=== PATIENT | female | born 1940 | race Caucasian/White ===

== ENCOUNTER 2021-03-08 22:09 | Inpatient (IN) | payer MEDICARE ==
[~2021-03-08] VITALS: Ht 151.1 cm; Wt 60.4 kg
[~2021-03-08 22:09] MED LIST: NAPR220C2 PO; TRAM50TA2 PO
--- NOTE | 2021-03-08 22:28 | NUR ---
GEN SURG PAGED
[2021-03-08] MEDS ORDERED: ONDANSETRON 2MG/ML, 2ML IVPush ONE (22:30)
[2021-03-08] MEDS ORDERED: SODIUM CHLORIDE FLUSH 10ML SYR IVF ONE (22:30)
[2021-03-08] MEDS ORDERED: SODIUM CHLORIDE 0.9% 1,000 ML IV ONE (22:30)
[2021-03-08] MEDS ORDERED: MORPHINE SULFATE 4 MG/ML, 1ML IVPush PRN (22:30)
--- NOTE | 2021-03-08 22:37 | NUR ---
CHANDRIKA FROM [facility] FOR POSSIBLE SBO OR HERNIA OBSTRUCTION AND VOMITING. PT HAS HX OF COLON CA AND SBO IN PAST. PT HAS OSTOMY IN RLQ AND RLQ ABD IS DISTENDED MUCH GREATER THEN LEFT. PT STATES SHE HAS ONLY VOMITED ONCE. PT RECEIVED MORPHINE AND ZOFRAN BEFORE TRANSFER AND STATES IT HAS HELPED WITH PAIN AND NOW PAIN IS 0/10.
[2021-03-08] MEDS ORDERED: ONDANSETRON 2MG/ML, 2ML ONE (23:20)
[2021-03-08] MEDS ORDERED: MORPHINE SULFATE 4 MG/ML, 1ML ONE (23:21)
[2021-03-08] MEDS ORDERED: hydrALAzine 20 MG/ML, 1ML IVPush PRN (23:30)
[2021-03-08] MEDS ORDERED: ONDANSETRON 2MG/ML, 2ML IVPush PRN (23:30)
[2021-03-08] MEDS ORDERED: ACETAMINOPHEN 325 MG TABLET PO PRN (23:30)
[2021-03-08] MEDS ORDERED: PROMETHAZINE 25 MG/ML, 1ML IM PRN (23:30)
[2021-03-08] MEDS ORDERED: OXYcodone IR 5MG TABLET PO PRN (23:30)
[2021-03-08] MEDS ORDERED: ONDANSETRON ODT 4 MG PO PRN (23:30)
--- NOTE | 2021-03-08 23:49 | NUR ---
NG TUBE PLACED WITH MINIMAL DISCOMFORT IN RIGHT NARE.
--- NOTE | 2021-03-08 23:57 | NUR ---
REPORT GIVEN TO KAUSHAL FERNANDEZ
--- NOTE | 2021-03-08 23:58 | NUR ---
DAUGHTER NARENDRA/TOPHER [phone]
[2021-03-09] MEDS: D5%-0.9% NACL 1,000 ML IV SCH ×2 (00:35→08:14)
[2021-03-09 00:39] VITALS: BP 146/70
[2021-03-09] MEDS: morphine SULFATE 10 MG/ML, 1ML IVPush PRN ×4 (02:32→09:19)
[2021-03-09] MEDS ORDERED: TRIM100T PO (03:18)
[2021-03-09] MEDS ORDERED: NITR100C PO (03:18)
[2021-03-09 05:44] LABS: BASOPHILS % (AUTO) 0 % (0-1); EOSINOPHILS % (AUTO) 1 % (1-7); LYMPHOCYTES % (AUTO) 11 % (22-44); MEAN CORPUSCULAR HEMOGLOBIN 29.5 pg (27.0-34.8); MEAN CORPUSCULAR HGB CONC 32.7 g/dL (32.4-35.8); MEAN PLATELET VOLUME 8.6 fL (7.4-10.4); MONOCYTES % (AUTO) 13 % (2-9); NEUTROPHILS % (AUTO) 74 % (42-75); PLATELET COUNT 193 x10^3/uL (130-400); RED BLOOD COUNT 4.55 x10^6/uL (3.82-5.3); RED CELL DISTRIBUTION WIDTH 16.1 % (9.6-15.2)
[2021-03-09 05:53] LABS: MD NO
[2021-03-09 06:00] LABS: CHLORIDE 114 mmol/L (98-107)
[2021-03-09 06:13] LABS: ALANINE AMINOTRANSFERASE 14 U/L (12-78); ALBUMIN 2.5 g/dL (3.4-5.0); ALKALINE PHOSPHATASE 95 U/L (45-117); ANION GAP 5 mmol/L (5-15); BILIRUBIN,TOTAL 0.7 mg/dL (0.2-1.0); CALCIUM 8.2 mg/dL (8.5-10.1); CHOL/HDL RATIO 2.6; CHOLESTEROL, TOTAL 164 mg/dL (140-239); CREATININE 1.05 mg/dL (0.55-1.02); HDL CHOL % 38 % (28-40); HDL CHOLESTEROL (DIRECT) 62 mg/dL (40-60); LDL CHOLESTEROL,CALCULATED 87 mg/dL (54-169); LDL/HDL RATIO 1.4 (0.5-3.0); TOTAL PROTEIN 6.4 g/dL (6.4-8.2); TRIGLYCERIDES 73 mg/dL (50-200); VLDL CHOLESTEROL 15 mg/dL (0-25)
[2021-03-09 07:44] VITALS: BP 149/79
[2021-03-09 13:47] VITALS: BP 135/81
[2021-03-09] MEDS: HEPARIN 5,000 UNITS/ML, 1ML SQ SCH (16:12)
[2021-03-09] MEDS: D5%-LR+KCL 20MEQ 1,000 ML IV SCH (16:13)
[2021-03-09 19:56] VITALS: BP 135/73
[2021-03-09 21:30] LABS: MICROSCOPIC INDICATED
[2021-03-09] MEDS ORDERED: D5%-0.9% NACL 1,000 ML IV SCH (23:30)
[2021-03-10 00:42] VITALS: BP 152/87
[2021-03-10] MEDS: HEPARIN 5,000 UNITS/ML, 1ML SQ SCH ×4 (01:49→18:00)
[2021-03-10] MEDS: D5%-LR+KCL 20MEQ 1,000 ML IV SCH ×2 (02:22→20:00)
[2021-03-10] MEDS: morphine SULFATE 10 MG/ML, 1ML IVPush PRN (04:04)
[2021-03-10 06:11] LABS: BASOPHILS % (AUTO) 1 % (0-1); EOSINOPHILS % (AUTO) 1 % (1-7); LYMPHOCYTES % (AUTO) 12 % (22-44); MEAN CORPUSCULAR HEMOGLOBIN 29.4 pg (27.0-34.8); MEAN CORPUSCULAR HGB CONC 32.5 g/dL (32.4-35.8); MEAN PLATELET VOLUME 8.6 fL (7.4-10.4); MONOCYTES % (AUTO) 16 % (2-9); NEUTROPHILS % (AUTO) 70 % (42-75); PLATELET COUNT 173 x10^3/uL (130-400); RED BLOOD COUNT 4.18 x10^6/uL (3.82-5.3); RED CELL DISTRIBUTION WIDTH 16.1 % (9.6-15.2)
[2021-03-10 06:19] LABS: ALBUMIN 2.4 g/dL (3.4-5.0); ANION GAP 3 mmol/L (5-15); CALCIUM 8.3 mg/dL (8.5-10.1); CHLORIDE 117 mmol/L (98-107); MD NO
[2021-03-10 06:22] LABS: ALANINE AMINOTRANSFERASE 13 U/L (12-78); ALKALINE PHOSPHATASE 82 U/L (45-117); BILIRUBIN,TOTAL 0.7 mg/dL (0.2-1.0); CREATININE 0.91 mg/dL (0.55-1.02); TOTAL PROTEIN 6.1 g/dL (6.4-8.2)
[2021-03-10 07:45] VITALS: BP 148/84
[2021-03-10] MEDS ORDERED: NITROFURANTOIN (MACROBID) 100 MG CAPSULE PO SCH (09:30)
[2021-03-10] MEDS ORDERED: POTASSIUM PHOSPHATE 22 MEQ in SODIUM CHLORIDE 0.9% 500 ML IV ONE (10:00)
[2021-03-10] MEDS ORDERED: TRIMETHOPRIM 100 MG TABLET PO SCH ×3 (10:00→21:00)
[2021-03-10] MEDS: CEFTRIAXONE PMX 1GM/50ML 50 ML IV SCH (10:01)
[2021-03-10] MEDS: NITROFURANTOIN (MACROBID) 100 MG CAPSULE PO SCH (10:02)
[2021-03-10 14:40] VITALS: BP 152/88
[2021-03-10 19:22] VITALS: BP 140/81
[2021-03-11] MEDS: D5%-LR+KCL 20MEQ 1,000 ML IV SCH (01:06)
[2021-03-11] MEDS: HEPARIN 5,000 UNITS/ML, 1ML SQ SCH ×2 (02:33→08:59)
[2021-03-11 05:06] LABS: BASOPHILS % (AUTO) 1 % (0-1); EOSINOPHILS % (AUTO) 1 % (1-7); LYMPHOCYTES % (AUTO) 15 % (22-44); MEAN CORPUSCULAR HEMOGLOBIN 29.6 pg (27.0-34.8); MEAN CORPUSCULAR HGB CONC 32.8 g/dL (32.4-35.8); MEAN PLATELET VOLUME 8.5 fL (7.4-10.4); MONOCYTES % (AUTO) 17 % (2-9); NEUTROPHILS % (AUTO) 66 % (42-75); PLATELET COUNT 149 x10^3/uL (130-400); RED BLOOD COUNT 3.99 x10^6/uL (3.82-5.3); RED CELL DISTRIBUTION WIDTH 15.8 % (9.6-15.2)
[2021-03-11 05:08] LABS: MD NO
[2021-03-11 05:13] LABS: ANION GAP 5 mmol/L (5-15); CALCIUM 8.4 mg/dL (8.5-10.1); CHLORIDE 116 mmol/L (98-107)
[2021-03-11 05:15] LABS: CREATININE 0.99 mg/dL (0.55-1.02)
[2021-03-11 07:30] VITALS: BP 144/85
[2021-03-11] MEDS: NITROFURANTOIN (MACROBID) 100 MG CAPSULE PO SCH (08:55)
[2021-03-11] MEDS: CEFTRIAXONE PMX 1GM/50ML 50 ML IV SCH (10:10)
[2021-03-11] MEDS ORDERED: AMOX1TAB61 PO (12:00)
[2021-03-11] MEDS ORDERED: TRAM50TA2 PO (12:00)
[2021-03-11 13:50] VITALS: BP 158/88
== END 2021-03-11 14:53 | disposition home health service (06) | DRG 389 ==
LOC: ED 22:43 → EDIP 23:15 → 4NE 03-09 00:34 → DCLOUNGE 03-11 14:45
PROVIDERS: ADMIT Colon & Rectal Surgery; ATTEND Internal Medicine
PROC: 0D9670Z Drainage of Stomach with Drainage Device, Via Natural or Artificial Opening (ICD-10-PCS; principal; 2021-03-09)
DX: K56.51 Intestinal adhesions [bands], with partial obstruction (principal); K43.3 Parastomal hernia with obstruction, without gangrene; N30.00 Acute cystitis without hematuria; N13.30 Unspecified hydronephrosis; G89.29 Other chronic pain; N28.1 Cyst of kidney, acquired; N31.9 Neuromuscular dysfunction of bladder, unspecified; N39.490 Overflow incontinence; Z85.048 Personal history of other malignant neoplasm of rectum, rectosigmoid junction, and anus; Z87.19 Personal history of other diseases of the digestive system; Z87.440 Personal history of urinary (tract) infections; Z87.891 Personal history of nicotine dependence; Z90.49 Acquired absence of other specified parts of digestive tract; Z92.21 Personal history of antineoplastic chemotherapy; Z92.3 Personal history of irradiation; Z93.3 Colostomy status; M54.9 Dorsalgia, unspecified; B95.2 Enterococcus as the cause of diseases classified elsewhere
CPT/HCPCS: 36415; 74018; 76770; 80048; 80053; 80061; 81001; 83036; 83735; 84100; 84443; 85025; 87077; 87086; 96374; G0378; J0696; J1644; J2405; J7042; J2270; J3480; J7030; J7040

== ENCOUNTER 2021-05-22 13:25 | Day surgery (SDC) | payer MEDICARE ==
[~2021-05-22] VITALS: Ht 151.1 cm; Wt 56.3 kg
[~2021-05-22 13:25] MED LIST changes: +AMOX1TAB61 PO; +NITR100C PO; +TRIM100T PO; +tylenol PO
[2021-05-22 13:47] VITALS: BP 145/90
[2021-05-22] MEDS ORDERED: TRAMADOL PO (13:51)
[2021-05-22] MEDS ORDERED: CHLORHEXIDINE 15 ML UDC ONE (13:56)
[2021-05-22] MEDS ORDERED: LACTATED RINGERS 1,000 ML IV SCH (14:00)
[2021-05-22] MEDS ORDERED: CHLORHEXIDINE 15 ML UDC PO ONE (14:00)
[2021-05-22] MEDS ORDERED: FENTANYL PF 100 MCG/2ML ONE ×2 (14:17→15:42)
[2021-05-22] MEDS ORDERED: MEPERIDINE/PF 25MG/0.5ML IVPush PRN (14:30)
[2021-05-22] MEDS ORDERED: ACETAMINOPHEN 325 MG TABLET PO PRN (14:30)
[2021-05-22] MEDS ORDERED: HALOPERIDOL 5 MG/ML IV PRN (14:30)
[2021-05-22] MEDS ORDERED: OXYcodone 5 MG/5 ML ORAL.SOL UDC PO PRN (14:30)
[2021-05-22] MEDS ORDERED: PROMETHAZINE 25 MG/ML, 1ML IVPush PRN (14:30)
[2021-05-22] MEDS ORDERED: hydrALAzine 20 MG/ML, 1ML IV PRN (14:30)
[2021-05-22] MEDS ORDERED: LABETALOL 5MG/ML, 20ML IV PRN (14:30)
[2021-05-22] MEDS ORDERED: DIPHENHYDRAMINE 50 MG/ML, 1ML IVPush PRN (14:30)
[2021-05-22] MEDS ORDERED: HYDROmorphone 1 MG/ML, 1ML INJ IVPush PRN (14:30)
[2021-05-22] MEDS ORDERED: ONDANSETRON 2MG/ML, 2ML ONE (15:05)
[2021-05-22] MEDS ORDERED: CEFAZOLIN 1,000 MG ONE (15:05)
[2021-05-22] MEDS ORDERED: PROPOFOL 10 MG/ML, 20ML ONE (15:05)
[2021-05-22] MEDS ORDERED: DEXAMETHASONE 4 MG/ML, 1ML ONE (15:05)
[2021-05-22] MEDS ORDERED: OXYcodone 5 MG/5 ML ORAL.SOL UDC ONE (15:42)
[2021-05-22] MEDS: FENTANYL PF 100 MCG/2ML IV PRN ×2 (15:45→16:04)
[2021-05-22] MEDS ORDERED: ACETAMINOPHEN 325 MG TABLET ONE (15:47)
[2021-08-06] MEDS ORDERED: CIPR250T27 PO (17:50)
== END 2021-05-22 18:08 | disposition home or self-care (01) ==
LOC: OUT 13:25
PROVIDERS: ATTEND Urology
DX: C67.9 Malignant neoplasm of bladder, unspecified (principal); N32.89 Other specified disorders of bladder; Z20.822 Contact with and (suspected) exposure to COVID-19; Z79.2 Long term (current) use of antibiotics; Z79.1 Long term (current) use of non-steroidal anti-inflammatories (NSAID); Z79.899 Other long term (current) drug therapy; Z72.89 Other problems related to lifestyle; Z87.891 Personal history of nicotine dependence
CPT/HCPCS: 52204; 88305; 93005; J0690; J1100; J2405; J2704; J3010; J7120; U0003; U0005; 88341; 88342

== ENCOUNTER 2021-08-01 09:31 | Inpatient (IN) | payer MEDICARE ==
[~2021-08-01] VITALS: Ht 149.9 cm; Wt 57.8 kg
[~2021-08-01 09:31] MED LIST changes: +TRAMADOL PO
--- NOTE | 2021-08-01 09:42 | NUR ---
BP CUFF, PULSE OX IN PLACE. WARM BLANKET PROVIDED, CALL LIGHT WITHIN REACH.
[2021-08-01] MEDS ORDERED: MORPHINE SULFATE 4 MG/ML, 1ML ONE (09:58)
[2021-08-01] MEDS ORDERED: ONDANSETRON 2MG/ML, 2ML ONE (09:58)
[2021-08-01] MEDS ORDERED: ONDANSETRON 2MG/ML, 2ML IVPush ONE (10:00)
--- NOTE | 2021-08-01 10:01 | NUR ---
PT IN XRAY.
[2021-08-01] MEDS: MORPHINE SULFATE 4 MG/ML, 1ML IVPush PRN ×2 (10:41→11:23)
[2021-08-01 10:45] LABS: BASOPHILS % (AUTO) 0 % (0-1); EOSINOPHILS % (AUTO) 0 % (1-7); LYMPHOCYTES % (AUTO) 7 % (22-44); MEAN CORPUSCULAR HEMOGLOBIN 29.9 pg (27.0-34.8); MEAN CORPUSCULAR HGB CONC 33.2 g/dL (32.4-35.8); MEAN PLATELET VOLUME 8.4 fL (7.4-10.4); MONOCYTES % (AUTO) 14 % (2-9); NEUTROPHILS % (AUTO) 79 % (42-75); PLATELET COUNT 252 x10^3/uL (130-400); RED BLOOD COUNT 4.19 x10^6/uL (3.82-5.3); RED CELL DISTRIBUTION WIDTH 14.8 % (9.6-15.2)
[2021-08-01 10:51] LABS: HCT (SEDRATE) 37.8 % (34.6-47.8)
[2021-08-01 10:55] LABS: ALBUMIN 2.5 g/dL (3.4-5.0); ANION GAP 6 mmol/L (5-15); CALCIUM 9.4 mg/dL (8.5-10.1); CHLORIDE 106 mmol/L (98-107); CREATININE 1.01 mg/dL (0.55-1.02)
[2021-08-01] MEDS ORDERED: LIDOCAINE 1%, 10ML INFIL ONE (11:00)
[2021-08-01] MEDS ORDERED: LIDOCAINE-MPF 1%, 5ML ONE (11:15)
--- NOTE | 2021-08-01 11:29 | NUR ---
PT REMEDICATED FOR RETURNING BILATERAL KNEE PAIN. SET UP READY AT BS FOR ERP. CALL LIGHT WITHIN REACH.
--- NOTE | 2021-08-01 11:42 | NUR ---
ERP COMPLETED DRAINAGE OF R KNEE. SPECIMENS WALKED TO LAB.
[2021-08-01] MEDS ORDERED: HYDROmorphone 2 MG/ML, 1ML ONE (13:08)
[2021-08-01] MEDS: HYDROmorphone 1 MG/ML, 1ML INJ IVPush PRN ×2 (13:10→14:39)
--- NOTE | 2021-08-01 13:12 | NUR ---
PT MEDICATED PER ERP ORDER. PAIN RATED AT 8/10. CALL LIGHT WITHIN REACH. AWAITING ADD ON LAB RESULTS.
[2021-08-01] MEDS ORDERED: COLCHICINE 0.6 MG CAPSULE PO ONE (14:00)
[2021-08-01] MEDS ORDERED: COLCHICINE 0.6 MG CAPSULE ONE (14:25)
--- NOTE | 2021-08-01 14:40 | NUR ---
CALL FROM FAMILY, PT TO BE ADMITTED. MED REC COMPLETED. PT REMEDICATED FOR RETURNING PAIN. CALL LIGHT WITHIN REACH.
[2021-08-01] MEDS ORDERED: MELATONIN 5 MG TABLET PO PRN (15:00)
[2021-08-01] MEDS ORDERED: ONDANSETRON 2MG/ML, 2ML IVPush PRN (15:00)
[2021-08-01] MEDS ORDERED: DOCUSATE 100 MG CAPSULE PO PRN (15:00)
[2021-08-01] MEDS ORDERED: METHOCARBAMOL 500 MG TABLET PO PRN (15:00)
[2021-08-01] MEDS ORDERED: ACETAMINOPHEN 325 MG TABLET PO PRN (15:00)
[2021-08-01] MEDS ORDERED: GUAIFENESIN/DM 200-20MG, 10ML UDC PO PRN (15:00)
[2021-08-01] MEDS ORDERED: ENALAPRILAT 1.25 MG/ML, 2ML IVPush PRN (15:00)
[2021-08-01] MEDS ORDERED: OXYcodone IR 5MG TABLET PO PRN (15:00)
--- NOTE | 2021-08-01 15:21 | NUR ---
ATTEMPT TO CALL REPORT. RN TO CALL BACK.
[2021-08-01] MEDS: morphine SULFATE 10 MG/ML, 1ML IVPush PRN (17:25)
[2021-08-01 17:31] VITALS: BP 131/72
[2021-08-01 19:06] VITALS: BP 132/71
[2021-08-01] MEDS: COLCHICINE 0.6 MG CAPSULE PO SCH (20:55)
[2021-08-01] MEDS: FAMOTIDINE 20 MG TABLET PO SCH (20:55)
[2021-08-01] MEDS: NAPROXEN 500 MG TABLET PO SCH (20:55)
[2021-08-01] MEDS: ENOXAPARIN 40 MG/0.4 ML SQ SCH (20:56)
[2021-08-01] MEDS ORDERED: TRAMADOL 100 MG PO SCH (21:00)
[2021-08-02 02:58] VITALS: BP 130/70
[2021-08-02 04:56] LABS: BASOPHILS % (AUTO) 1 % (0-1); EOSINOPHILS % (AUTO) 1 % (1-7); LYMPHOCYTES % (AUTO) 11 % (22-44); MEAN CORPUSCULAR HEMOGLOBIN 30.2 pg (27.0-34.8); MEAN CORPUSCULAR HGB CONC 33.4 g/dL (32.4-35.8); MEAN PLATELET VOLUME 8.2 fL (7.4-10.4); MONOCYTES % (AUTO) 17 % (2-9); NEUTROPHILS % (AUTO) 71 % (42-75); PLATELET COUNT 220 x10^3/uL (130-400); RED BLOOD COUNT 4.02 x10^6/uL (3.82-5.3); RED CELL DISTRIBUTION WIDTH 14.8 % (9.6-15.2)
[2021-08-02 05:03] LABS: ANION GAP 5 mmol/L (5-15); CALCIUM 9.3 mg/dL (8.5-10.1); CHLORIDE 111 mmol/L (98-107); CREATININE 1.15 mg/dL (0.55-1.02)
[2021-08-02 07:24] VITALS: BP 134/75
[2021-08-02] MEDS: NAPROXEN 500 MG TABLET PO SCH ×2 (07:46→20:19)
[2021-08-02] MEDS: COLCHICINE 0.6 MG CAPSULE PO SCH ×2 (07:46→20:19)
[2021-08-02] MEDS: FAMOTIDINE 20 MG TABLET PO SCH (07:47)
[2021-08-02] MEDS: morphine SULFATE 10 MG/ML, 1ML IVPush PRN (10:17)
[2021-08-02 14:29] VITALS: BP 108/65
[2021-08-02] MEDS: ENOXAPARIN 40 MG/0.4 ML SQ SCH (15:00)
[2021-08-02] MEDS ORDERED: ENOXAPARIN 30 MG/0.3 ML SQ SCH (16:30)
[2021-08-02 18:13] VITALS: BP 108/64
[2021-08-03 03:29] VITALS: BP 120/71
[2021-08-03 06:34] VITALS: BP 122/74
[2021-08-03] MEDS ORDERED: FAMOTIDINE 20 MG TABLET PO SCH (09:00)
[2021-08-03] MEDS: NAPROXEN 500 MG TABLET PO SCH (09:35)
[2021-08-03] MEDS: COLCHICINE 0.6 MG CAPSULE PO SCH (09:35)
[2021-08-03] MEDS ORDERED: NAPR220C2 PO (11:22)
[2021-08-03] MEDS ORDERED: COLC0.6C3 PO (11:22)
[2021-08-03 11:23] LABS: MICROSCOPIC INDICATED
[2021-08-06] MEDS ORDERED: CIPR250T27 PO (17:50)
== END 2021-08-03 15:07 | disposition home health service (06) | DRG 554 ==
LOC: ED 11:23 → EDIP 14:57 → 4NW 17:13
PROVIDERS: ADMIT Internal Medicine; ATTEND Internal Medicine
PROC: 0S9C3ZZ Drainage of Right Knee Joint, Percutaneous Approach (ICD-10-PCS; principal; 2021-08-01)
DX: M11.261 Other chondrocalcinosis, right knee (principal); M17.0 Bilateral primary osteoarthritis of knee; G89.29 Other chronic pain; Z93.3 Colostomy status; Z83.3 Family history of diabetes mellitus; Z85.048 Personal history of other malignant neoplasm of rectum, rectosigmoid junction, and anus; Z87.891 Personal history of nicotine dependence; Z90.49 Acquired absence of other specified parts of digestive tract
CPT/HCPCS: 36415; 80048; 81001; 82040; 82945; 83615; 83735; 84100; 84157; 84550; 84560; 85025; 85651; 85810; 86140; 87040; 87070; 87077; 87086; 87186; 87205; 89050; 89060; 93970; 96374; 96375; 99285; G0378; J1170; J2405; J2270